=== PATIENT | male | born 1970 | race Two or more races ===

== ENCOUNTER 2024-12-22 08:13 | Emergency (ER) | payer BC ==
[~2024-12-22] VITALS: Ht 180.3 cm; Wt 63.5 kg
[2024-12-22] MEDS ORDERED: XELJANZ5 MG PO (08:21)
[2024-12-22 08:22] VITALS: BP 163/92; O2SAT 98
[2024-12-22] MEDS ORDERED: MORPHINE SULFATE 4 MG/ML VIAL IV STA (08:54)
[2024-12-22 09:22] LABS: PH,URINE 5.5 (5.0-8.0); URINE APPEARANCE Clear; URINE BILIRRUBIN Negative (NEGATIVE); URINE BLOOD Moderate; URINE COLOR Yellow; URINE GLUCOSE Negative (NEGATIVE); URINE LEUKOCYTE Negative; URINE NITRATE Negative; URINE PROTEIN Negative (NEGATIVE); URINE UROBILINOGEN 0.2 E.U./dl
[2024-12-22 09:25] LABS: URINE BACTERIA 7.3 uL (0.0-1933); URINE EPITHELIAL CELLS 6.4 uL (0.0-38.8); URINE RBC 8.6 uL (0.0-20.8); URINE WBC 6.9 uL (0.0-23.2)
[2024-12-22 09:32] LABS: HEMATOCRIT 41.8 % (39.0-48.0); HEMOGLOBIN 14.3 g/dL (13-16.00); MEAN CELL VOLUME 86.2 fL (80.0-100.00); MEAN CORPUSCULAR HEMOGLOBIN 29.5 pg (27.00-32.0); MEAN CORPUSCULAR HGB CONC 34.3 g/dl (32.0-36.0); PLATELET COUNT 309 K/uL (150-450); RED BLOOD COUNT 4.85 M/uL (4.00-6.00); RED CELL DISTRIBUTION WIDTH 13.4 % (11.5-14.5)
[2024-12-22 09:33] LABS: URINE CAST 0.29 uL (0.0-1.40); URINE KETONE 40 (NEGATIVE)
[2024-12-22 09:58] LABS: ALBUMIN 4.2 gm/dL (3.4-5.0); BILIRUBIN TOTAL 0.59 mg/dL (0.3-1.2); BILIRUBIN,CONJUGATED 0.17 mg/dL (0.0-0.2); BILIRUBIN,UNCONJUGATED 0.42 mg/dL (0.0-0.6); CALCIUM 9.5 mg/dL (8.5-10.1); CREATININE SERUM 0.84 mg/dL (0.70-1.30); GFR 95.95; POTASSIUM 4.79 mEq/L (3.5-5.1); TOTAL PROTEIN 8.1 gm/dL (6.4-8.2)
== END 2024-12-22 13:05 | disposition home or self-care (01) ==
LOC: ER 08:15
PROVIDERS: General Practice
DX: R30.0 Dysuria (principal)